=== PATIENT | female | born 1965 | race Caucasian/White ===

== ENCOUNTER 2017-01-20 08:27 | Emergency (ER) | payer OTHER ==
[~2017-01-20] VITALS: Ht 162.6 cm; Wt 83.5 kg
[2017-01-20] MEDS ORDERED: SPORANOX100 MG PO (09:10)
[2017-01-20] MEDS ORDERED: DOXYCYCLINE HY100 MG PO (09:10)
[2017-01-20 09:32] VITALS: BP 142/93
== END 2017-01-20 09:32 | disposition home or self-care (01) ==
LOC: EME 08:27
DX: L03.011 Cellulitis of right finger (principal)
CPT/HCPCS: 99281; 99282